=== PATIENT | male | born 1945 | race Caucasian/White ===

== ENCOUNTER → 2020-12-01 | Outpatient (CLI) | payer MEDICARE, OTHER ==
[~2020-12-01] MED LIST: AMLO5 PO; ASPI81CH PO; ATOR80 PO; CLOP75 PO; ESCI5 PO; IBUP200; LORA10 PO; Metoprolol Tart25 MG PO; NITR.4SL SL; OMEP10ER PO; ONDA4ODT MM; PANT40 PO; STOOL SOFTENER50 MG PO; Vibramycin100 MG PO
== END | disposition home or self-care (01) ==
LOC: LAB SHORT 17:52 → LAB 17:52
DX: R31.9 Hematuria, unspecified (principal); R11.2 Nausea with vomiting, unspecified
CPT/HCPCS: 87086

== ENCOUNTER 2020-12-03 18:50 | Emergency (ER) | payer MEDICARE, OTHER ==
[~2020-12-03] VITALS: Ht 182.9 cm; Wt 81.7 kg
[~2020-12-03 18:50] MED LIST changes: -ONDA4ODT MM; -Vibramycin100 MG PO
[2020-12-03 20:11] LABS: BASOPHILS ABSOLUTE AUTO 0.01 K/mm3 (0.00-0.23); BASOPHILS PERCENT AUTO 0 % (0-2); EOSINOPHILS PERCENT AUTO 0 % (0-6); Hematocrit 38.7 % (37.0-53.0); IMMATURE GRAN ABSOLUTE AUTO 0.03 K/mm3 (0.00-0.10); IMMATURE GRAN PERCENT AUTO 0 % (0-1); LYMPHOCYTES ABSOLUTE AUTO 0.37 K/mm3 (0.84-5.20); LYMPHOCYTES PERCENT AUTO 4 % (21-46); MONOCYTES PERCENT AUTO 5 % (4-13); Mean Corpuscular HGB 33.3 pg (26.0-34.0); Mean Corpuscular HGB Conc 33.6 g/dL (31.5-36.5); Mean Corpuscular Volume 99 fL (80-100); Mean Platelet Volume 10.9 fL (9.1-12.4); NEUTROPHILS PERCENT AUTO 90 % (41-73); Platelet Count 204 K/mm3 (150-400); RDW Coefficient Variation 12.6 % (11.7-14.2); RDW Standard Deviation 46.5 fL (35.1-46.3); White Blood Cell Count 9.51 K/mm3 (4.00-11.30)
[2020-12-03 20:34] LABS: Alanine Aminotransfer (ALT/SGP 24 U/L (12-78); Albumin, Blood 3.2 g/dL (3.4-5.0); Albumin/Globulin Ratio 0.7 (0.8-1.8); Alk Phos 84 U/L (50-136); Anion Gap 6 mmol/L (6-16); Aspartate Aminotrans (AST/SGOT 22 U/L (12-37); Bilirubin, Total 0.3 mg/dL (0.1-1.0); Blood Urea Nitrogen 11 mg/dL (8-24); Bun/Creatinine Ratio 9.9 (12.0-20.0); CO2, Blood 30 mmol/L (21-32); Calcium, Blood 9.1 mg/dL (8.5-10.1); Chloride, Blood 100 mmol/L (98-108); Creatinine, Blood 1.11 mg/dL (0.60-1.20); Globulin, Blood 4.8 g/dL (2.2-4.0); Glomerular Filtration Rate >60 (60-); Glucose, Blood 168 mg/dL (70-99); Potassium, Blood 3.7 mmol/L (3.5-5.5); Sodium, Blood 136 mmol/L (136-145)
[2020-12-04] MEDS ORDERED: Vibramycin100 MG PO (00:43)
[2020-12-04] MEDS ORDERED: ONDA4ODT MM (00:45)
== END 2020-12-04 01:00 | disposition home or self-care (01) ==
LOC: ER 18:50
PROVIDERS: Physician Assistant
DX: J18.9 Pneumonia, unspecified organism (principal); Z79.82 Long term (current) use of aspirin; Z79.899 Other long term (current) drug therapy
CPT/HCPCS: 36415; 71046; 80053; 83605; 85025; 93005; 93010; 96374; 99284-25; A9270; J2405; J7120

== ENCOUNTER → 2022-02-17 | Outpatient (CLI) | payer MEDICARE, OTHER ==
[~2022-02-17] MED LIST changes: +ONDA4ODT MM; +Vibramycin100 MG PO
== END | disposition home or self-care (01) ==
LOC: PLD 11:03 → LAB SHORT 11:03
DX: D48.5 Neoplasm of uncertain behavior of skin (principal)
CPT/HCPCS: 88305

== ENCOUNTER 2023-06-09 08:20 | Day surgery (SDC) | payer MEDICARE, OTHER ==
[~2023-06-09] VITALS: Ht 182.9 cm; Wt 83.9 kg
[2023-06-09] VITALS (14 sets, daily range): BP systolic 100–133; BP diastolic 63–92
[~2023-06-09 08:20] MED LIST changes: +ALLO300; +ALLO300 PO; +AMLODIPINE BESYL5 MG PO; +CLOBETTC TOP; +ESCI10 PO; +FLUOCINOLON118.28 M1 TOP; +FLUTICASONE PROPIONA; +HYOS.125 SL; +LACT10SY PO; +LINZESS72 MCG PO; +METO25 PO; +MIRALAX17 GM PO
--- NOTE | 2023-06-09 11:29 | NUR ---
06/09/23 1129 Mirna Crawford ABDOMEN PREPPED PRIOR TO NAVIGATION PINS BEING PLACED BY DR. MEJÍA. 1GM OF VANCO POWDER INSTILLED INTO R HIP JOINT CAPSULE BY DR. MEJÍA.
--- NOTE | 2023-06-09 13:33 | NUR ---
ARRIVAL TO SURGICAL UNIT ALERT & ORIENTED. ASSESSMENT CHARTED. DENIES N/V. SNACKS & WATER GIVEN.
--- NOTE | 2023-06-09 16:44 | NUR ---
Pt. is awake in bed when he welcomes my visit. Pt. is pleasant. Spouse is present. Facilitate a life review and establish rapport. Pt. displays evidence of awareness, humor and engagement. Pt. verbalizes anticipation for a day discharge. Prayed with pt. Pt. verbalized gratitude for the spiritual care visit.
--- NOTE | 2023-06-09 17:01 | NUR ---
SHIFT SUMMARY PT HAS DONE WELL POST OP. NO THERAPY, BUT UP TO CHAIR. EATING, DRINKING, & VOIDING. PLEASANT. PAIN WELL CONTROLLED.
[2023-06-10 00:01] VITALS: BP 113/75
[2023-06-10 03:20] VITALS: BP 114/64
[2023-06-10 04:39] LABS: BASOPHILS ABSOLUTE AUTO 0.01 K/mm3 (0.00-0.23); BASOPHILS PERCENT AUTO 0 % (0-2); EOSINOPHILS PERCENT AUTO 0 % (0-6); Hematocrit 32.7 % (37.0-53.0); Hemoglobin 10.8 g/dL (13.5-17.5); IMMATURE GRAN ABSOLUTE AUTO 0.03 K/mm3 (0.00-0.10); IMMATURE GRAN PERCENT AUTO 1 % (0-1); LYMPHOCYTES ABSOLUTE AUTO 1.07 K/mm3 (0.84-5.20); LYMPHOCYTES PERCENT AUTO 17 % (21-46); MONOCYTES ABSOLUTE AUTO 0.55 K/mm3 (0.16-1.47); MONOCYTES PERCENT AUTO 9 % (4-13); Mean Corpuscular HGB 33.8 pg (26.0-34.0); Mean Corpuscular Volume 102 fL (80-100); NEUTROPHILS PERCENT AUTO 73 % (41-73); Platelet Count 175 K/mm3 (150-400); RDW Coefficient Variation 13.6 % (11.7-14.2); White Blood Cell Count 6.26 K/mm3 (4.00-11.30)
--- NOTE | 2023-06-10 04:47 | NUR ---
SHIFT SUMMARY POD1 RIGHT BIANKA. BULKY DRESSINGS ARE C/D/I. SENSATION AND CIRCULATION REMAINS INTACT IN RLE. VSS. PT GOT NO SLEEP T/O THE NIGHT, STRUGGLED WITH GETTING COMFORTABLE. PT REPORTED MINIMAL PAIN T/O THE NIGHT. MEDICATED WITH SCEDULED MEDICATIONS AND UTILIZED CRYO. PT AMBULATED TO THE BATHROOM MULTIPLE TIMES T/O THE NIGHT WITH SBA. PASSING FLATTUS. TOLLERATING PO INTAKE. NO ACUTE EVENTS NOTED. PLAN FOR PT TODAY. REQUESTED OCCUPATIONNAL THERAPY, PLAN TO INFORM ONCOMING NURSE.
[2023-06-10 05:20] LABS: Calcium, Blood 8.1 mg/dL (8.5-10.1); Creatinine, Blood 1.28 mg/dL (0.60-1.20); Magnesium, Blood 1.9 mg/dL (1.6-2.4); Potassium, Blood 4.5 mmol/L (3.5-5.5)
[2023-06-10 07:03] VITALS: BP 117/79
[2023-06-10] MEDS ORDERED: PROM12.5S PO (10:06)
[2023-06-10] MEDS ORDERED: OXAYDO5 M1 PO (10:06)
[2023-06-10] MEDS ORDERED: XARELTO20 MG PO (10:07)
[2023-06-10] MEDS ORDERED: SULTRIDS PO (10:08)
--- NOTE | 2023-06-10 10:55 | NUR ---
DISCHARGE: PT WORKED WITH OT/PT. PAIN WELL MANAGED AND PT PASSED THERAPY. SURGICAL DRESSINGS CHANGED BY THIS RN AND PT GIVEN EXTRA AQUACEL DRESSINGS. DC EDUCATION GIVEN. SCRIPTS ALREADY FILLED, NONE NEEDED SENT TO PHARMACY. PT AND VERBALIZED UNDERSTANDING OF DC TEACHING. PT LEFT UNIT VIA WHEELCHAIR AT 1030.
== END 2023-06-10 10:30 | disposition home or self-care (01) ==
LOC: ORSCMMR 08:20 → ORD 10:45 → SURS 13:19 → ORSCMMR 06-10 10:30
PROVIDERS: Orthopaedic Surgery
PROC: 0SR90JA Replacement of Right Hip Joint with Synthetic Substitute, Uncemented, Open Approach (ICD-10-PCS; principal; 2023-06-09 10:45)
DX: M16.11 Unilateral primary osteoarthritis, right hip (principal); M87.9 Osteonecrosis, unspecified; E78.5 Hyperlipidemia, unspecified; I10 Essential (primary) hypertension; K21.9 Gastro-esophageal reflux disease without esophagitis; F32.A Depression, unspecified; Z79.899 Other long term (current) drug therapy
CPT/HCPCS: 36415; 72170; 80048; 83735; 85025; 94760; 97116; 97161; 97165; 97530; 97535; A9270; C1713; C1776; J0171; J0690; J0735; J1100; J1885; J2250; J2371; J2405; J2704; J2795; J3010; J3370; J7120

== ENCOUNTER → 2024-11-13 | Outpatient (CLI) | payer MEDICARE, OTHER ==
[~2024-11-13] MED LIST changes: +OXAYDO5 M1 PO; +PROM12.5S PO; +SULTRIDS PO; +XARELTO20 MG PO
[2024-11-16 15:33] LABS: CALPROTECTIN,FECAL 83 ug/g (<=49)
[2024-11-16 16:01] LABS: FAT, FECAL - NEUTRAL Normal (Normal); FAT, FECAL - SPLIT Normal (Normal)
[2024-11-17 16:58] LABS: PANCREATIC ELASTASE,FECAL 649 ug/g (>=100)
== END | disposition home or self-care (01) ==
LOC: LAB SHORT 18:03 → LAB 18:03
PROVIDERS: Family Medicine
DX: K58.0 Irritable bowel syndrome with diarrhea (principal)
CPT/HCPCS: 82653; 82705; 83993

== ENCOUNTER 2025-01-20 04:24 | Emergency (ER) | payer MEDICARE, OTHER ==
[~2025-01-20] VITALS: Ht 182.9 cm; Wt 77.1 kg
[2025-01-20 04:35] VITALS: BP 141/81
[2025-01-20] MEDS ORDERED: PRED20 PO (05:03)
== END 2025-01-20 05:17 | disposition home or self-care (01) ==
LOC: ER 04:24
DX: L23.7 Allergic contact dermatitis due to plants, except food (principal); L29.9 Pruritus, unspecified; Z79.899 Other long term (current) drug therapy; Z79.82 Long term (current) use of aspirin; Z87.891 Personal history of nicotine dependence; Z96.641 Presence of right artificial hip joint
CPT/HCPCS: 99282; J7512